=== PATIENT | male | born 1970 | race Caucasian/White ===

== ENCOUNTER 2024-02-16 18:58 | Observation (INO) | payer BC, MEDICAID ==
[2024-02-16] MEDS ORDERED: BABY ASPIRIN 81 MG CHEW ONE (19:10)
[2024-02-16] MEDS: BABY ASPIRIN 81 MG CHEW PO ONE (19:10)
[2024-02-16 19:20] LABS: Absolute Neutrophil Ct (ANC) 5.67 x10^3/uL (1.78-5.38); BASOPHIL % 0.8 % (0.2-1.2); Basophil (Absolute #) 0.07 x10^3/uL (0.01-0.08); Eosinophil % 2.7 % (0.8-7.0); Eosinophil (Absolute #) 0.25 x10^3/uL (0.04-0.54); Hematocrit 41.7 % (40.1-51.0); Hemoglobin 14.3 g/dL (13.7-17.5); IMMATURE GRAN # 0.01 x10^3u/L (0.001-0.031); IMMATURE GRAN % 0.1 % (0.001-0.429); Lymphocytes % 27.2 % (21.8-53.1); Mean Cell Volume 93.1 fL (79.0-92.2); Mean Corpuscular Hemoglobin 31.9 pg (25.7-32.2); Mean Corpuscular Hgb Concent. 34.3 g/dL (32.3-36.5); Mean Platelet Volume 9.7 fL (9.4-12.4); Monocytes % 7.6 % (5.3-12.2); Neutrophil % 61.6 % (34.0-67.9); Platelet Count 210 x10^3/uL (163-337); Red Blood Count 4.48 x10^6/uL (4.63-6.08); Red Cell Distribution Width 13.7 % (11.6-14.4); White Blood Count 9.2 x10^3/uL (4.23-9.07)
--- NOTE | 2024-02-16 19:29 | ERPHSYRPT ---
- History of Present Illness Time Seen by Provider: 02/16/24 19:05 Historian: patient, family Exam Limitations: no limitations Patient Subjective Stated Complaint: chest pain Triage Nursing Assessment: patient states that he's had 9 MIs, too many stents to count, recently moved here from [place] so not taking any prescibed medication Physician History: This is a 53-year-old white male patient brought into the emergency department by private vehicle accompanied by his daughter secondary to chest pain that he has been having intermittently for several months. Patient had a coronary artery bypass in March 2023. Since that time he has been unable to work and he lost his insurance. He is unable to purchase his medications and therefore he has been sporadically taking his medications in order to conserve them. He has a history of multiple MIs and cardiac stents in the past as well. He has a history of hyperlipidemia and is supposed to be on Plavix which he periodically/sporadically takes. Patient began having some chest pain today substernal, central pressure without radiation. He took a full baby aspirin and a full regular aspirin earlier today. At the time of my examination, the patient denies chest pain. His vital signs are stable and he is afebrile. Timing/Duration: intermittent Activities at Onset: none Quality: pressure Location: substernal, central Chest Pain Radiation: no radiation Severity of Pain-Max: mild (To moderate earlier today) Severity of Pain-Current: none Associated Symptoms: denies symptoms Prior Chest Pain/Cardiac Workup: cardiac cath, echocardiography, heart attack Nitro Today/Relief: no nitro taken today Aspirin Treatment Today: 81 mg x 4, 325 mg x 1, provided at home Allergies/Adverse Reactions: No Known Drug Allergies Allergy (Unverified 02/16/24 19:07) Home Medications: Aspirin [Aspirin EC] 81 mg PO DAILY 02/16/24 [History] Atorvastatin Calcium [Lipitor] 80 mg PO DAILY 02/16/24 [History] Clopidogrel Bisulfate [Clopidogrel] 75 mg PO DAILY 02/16/24 [History] Lisinopril 20 mg [Zestril 20 MG] 20 mg PO DAILY 02/16/24 [History] Metoprolol Succinate 25 mg Xl* [Toprol-Xl 25MG Tablets] 25 mg PO DAILY 02/16/24 [History] Hx Influenza Vaccination/Date Given: No Hx Pneumococcal Vaccination/Date Given: No Travel Risk - International Travel Have you traveled outside of the country in past 3 weeks: No - Emerging Infectious Disease Are you exhibiting symptoms associated with any current EIDs: No - Review of Systems Constitutional: No Symptoms Eyes: No Symptoms Ears, Nose, & Throat: No Symptoms Respiratory: No Symptoms Cardiac: Chest Pain (None now) Abdominal/Gastrointestinal: No Symptoms Genitourinary Symptoms: No Symptoms Musculoskeletal: No Symptoms Skin: No Symptoms Neurological: No Symptoms Psychological: No Symptoms Endocrine: No Symptoms Hematologic/Lymphatic: No Symptoms Immunological/Allergic: No Symptoms All Other Systems: Reviewed and Negative - Past Medical History Pertinent Past Medical History: Yes Cardiac History: Coronary Artery Disease, Myocardial Infarction ([place]) - Past Surgical History Cardiac: Cardiac Catheterization, Cardiac Stent - Social History Smoking Status: Current every day smoker Exposure to second hand smoke: Yes Drug Use: none - Nursing Vital Signs Nursing Vital Signs: Initial Vital Signs Temperature 97.6 F 02/16/24 18:59 Pulse Rate 85 02/16/24 18:59 Respiratory Rate 18 02/16/24 18:59 Blood Pressure 130/75 02/16/24 18:59 O2 Sat by Pulse Oximetry 100 02/16/24 18:59 Pain Scale Pain Intensity 0 - Physical Exam General Appearance: no apparent distress, alert, anxiety, thin Eye Exam: PERRL/EOMI, eyes nml inspection Ears, Nose, Throat Exam: normal ENT inspection, moist mucous membranes Neck Exam: normal inspection, non-tender, supple, full range of motion Respiratory Exam: normal breath sounds, lungs clear, airway intact, No chest tenderness, No respiratory distress Cardiovascular Exam: regular rate/rhythm, normal heart sounds, normal peripheral pulses Gastrointestinal/Abdomen Exam: soft, normal bowel sounds, No tenderness Rectal Exam: not done Back Exam: normal inspection, normal range of motion, No CVA tenderness, No vertebral tenderness Extremity Exam: normal inspection, normal range of motion, pelvis stable Neurologic Exam: alert, oriented x 3, cooperative, 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 QTc is 392. No acute ischemic changes on this EKG) Ordered Tests: Active Orders 24 hr Category Date Time Status Hand Plate Stacker STAT Care 02/16/24 19:08 Active EKG-ER Only STAT Care 02/16/24 19:07 Active IV Insertion STAT Care 02/16/24 19:07 Active Pulse Oximetry (ED) STAT Care 02/16/24 19:07 Active CHEST 1 VIEW (PORTABLE) Stat Exams 02/16/24 20:19 Ordered CBC W DIFF Stat Lab 02/16/24 19:00 Completed CMP Stat Lab 02/16/24 19:00 Completed D-DIMER QUANTITATIVE Stat Lab 02/16/24 19:00 Completed MAGNESIUM Stat Lab 02/16/24 19:00 Completed NT PRO BNPII Stat Lab 02/16/24 19:00 Completed PROTIME WITH INR Stat Lab 02/16/24 19:00 Completed PTT Stat Lab 02/16/24 19:00 Completed TROPONIN Q4H Lab 02/16/24 19:00 Completed TROPONIN Q4H Lab 02/16/24 21:28 Completed TROPONIN Q4H Lab 02/17/24 03:15 Ordered Medication Summary Discontinued Medications Generic Name Dose Route Start Last Admin Trade Name Freq PRN Reason Stop Dose Admin Aspirin 243 mg 02/16/24 19:09 02/16/24 19:12 Aspirin 81 Mg Tab.Chew PO 02/16/24 19:10 Not Given STAT ONE Aspirin Confirm 02/16/24 19:10 Aspirin 81 Mg Tab.Chew Administered 02/16/24 19:11 Dose 243 mg .ROUTE .STK-MED ONE Lab/Rad Data: Laboratory Result Diagrams 02/16/24 19:00 02/16/24 19:00 Laboratory Results 02/16/24 02/16/24 02/16/24 Range/Units 21:28 19:00 19:00 WBC (4.23-9.07) x10^3/uL RBC (4.63-6.08) x10^6/uL Hgb (13.7-17.5) g/dL Hct (40.1-51.0) % MCV (79.0-92.2) fL MCH (25.7-32.2) pg MCHC (32.3-36.5) g/dL RDW (11.6-14.4) % Plt Count (163-337) x10^3/uL MPV (9.4-12.4) fL Gran % (34.0-67.9) % Immature Gran % (Auto) (0.001-0.429) % Nucleat RBC Rel Count (0.00-0.2) % Eos # (Auto) (0.04-0.54) x10^3/uL Immature Gran # (Auto) (0.001-0.031) x10^3u/L Absolute Lymphs (auto) (1.32-3.57) x10^3/uL Absolute Monos (auto) (0.30-0.82) x10^3/uL Absolute Nucleated RBC (0.00-0.012) x10^3u/L Lymphocytes % (21.8-53.1) % Monocytes % (5.3-12.2) % Eosinophils % (0.8-7.0) % Basophils % (0.2-1.2) % Absolute Granulocytes (1.78-5.38) x10^3/uL Basophils # (0.01-0.08) x10^3/uL PT 10.3 (9.4-12.5) SECONDS INR 0.94 (0.8-3.0) APTT 28.7 (25.1-36.5) SECONDS D-Dimer 0.47 (0.0-0.50) mg/L Sodium (135-145) mmol/L Potassium (3.5-5.1) mmol/L Chloride (98-107) mmol/L Carbon Dioxide (22-30) mmol/L Anion Gap (5-15) MEQ/L BUN (9-20) mg/dL Creatinine (0.66-1.25) mg/dL Estimated GFR ML/MIN Glucose (74-106) mg/dL Calcium (8.4-10.2) mg/dL Magnesium (1.6-2.3) mg/dL Total Bilirubin (0.2-1.3) mg/dL AST (17-59) U/L ALT (0-50) U/L Alkaline Phosphatase (38-126) U/L Troponin I < 0.012 < 0.012 (0.000-0.033) ng/mL NT-Pro-B Natriuret Pep (<300) pg/mL Serum Total Protein (6.3-8.2) g/dL Albumin (3.5-5.0) g/dL 02/16/24 02/16/24 Range/Units 19:00 19:00 WBC 9.2 H (4.23-9.07) x10^3/uL RBC 4.48 L (4.63-6.08) x10^6/uL Hgb 14.3 (13.7-17.5) g/dL Hct 41.7 (40.1-51.0) % MCV 93.1 H (79.0-92.2) fL MCH 31.9 (25.7-32.2) pg MCHC 34.3 (32.3-36.5) g/dL RDW 13.7 (11.6-14.4) % Plt Count 210 (163-337) x10^3/uL MPV 9.7 (9.4-12.4) fL Gran % 61.6 (34.0-67.9) % Immature Gran % (Auto) 0.1 (0.001-0.429) % Nucleat RBC Rel Count 0.0 (0.00-0.2) % Eos # (Auto) 0.25 (0.04-0.54) x10^3/uL Immature Gran # (Auto) 0.01 (0.001-0.031) x10^3u/L Absolute Lymphs (auto) 2.50 (1.32-3.57) x10^3/uL Absolute Monos (auto) 0.70 (0.30-0.82) x10^3/uL Absolute Nucleated RBC 0.00 (0.00-0.012) x10^3u/L Lymphocytes % 27.2 (21.8-53.1) % Monocytes % 7.6 (5.3-12.2) % Eosinophils % 2.7 (0.8-7.0) % Basophils % 0.8 (0.2-1.2) % Absolute Granulocytes 5.67 H (1.78-5.38) x10^3/uL Basophils # 0.07 (0.01-0.08) x10^3/uL PT (9.4-12.5) SECONDS INR (0.8-3.0) APTT (25.1-36.5) SECONDS D-Dimer (0.0-0.50) mg/L Sodium 141 (135-145) mmol/L Potassium 4.5 (3.5-5.1) mmol/L Chloride 106 (98-107) mmol/L Carbon Dioxide 29 (22-30) mmol/L Anion Gap 10.6 (5-15) MEQ/L BUN 13 (9-20) mg/dL Creatinine 0.93 (0.66-1.25) mg/dL Estimated GFR 97.0 ML/MIN Glucose 89 (74-106) mg/dL Calcium 9.8 (8.4-10.2) mg/dL Magnesium 2.0 (1.6-2.3) mg/dL Total Bilirubin 0.30 (0.2-1.3) mg/dL AST 24 (17-59) U/L ALT 19 (0-50) U/L Alkaline Phosphatase 70 (38-126) U/L Troponin I (0.000-0.033) ng/mL NT-Pro-B Natriuret Pep 121 (<300) pg/mL Serum Total Protein 6.8 (6.3-8.2) g/dL Albumin 3.9 (3.5-5.0) g/dL - Progress Progress: improved, re-examined Air Movement: good Progress Note: 02/16/24 19:30 My medical decision making and the assignment of moderate to high complexity is based on review of the patient's past medical history, review the patient's medication list, reviewed patient drug allergy list, history present illness and physical findings on examination. The workup in this patient includes placement of intravenous line, CBC, CMP, D-dimer, BNP, troponin level, twelve-lead EKG, magnesium level. If the D-dimer is normal we will proceed with a chest x-ray. If the D-dimer is elevated we will proceed with CT scan of the chest with contr ast assuming the renal function is in an appropriate range. Differential diagnosis includes but is not limited to muscle skeletal pain, microinfarction, pulmonary embolus, pneumonia, electrolyte abnormalities, arrhythmias 02/16/24 21:01 I interpreted the patient's laboratory data results. Based on the laboratory data results, there are no acute, emergent medical issues. I interpreted the preliminary chest x-ray report. There are no acute cardiopulmonary processes. 02/16/24 21:54 I interpreted the patient's second (repeat) twelve-lead EKG. It was performed on 02/16/2024 at 2131. Heart rate is 74 bpm. Is normal sinus rhythm. There is borderline left axis deviation. There is normal intervals, there is normal QRS. QTc is 414. No acute ischemic changes on today's twelve-lead EKG. 02/16/24 22:11 The second troponin is also normal. The patient has no chest pain at this time. However he has a significantly elevated heart score and should be observed for 24 hours. I spoke with telehospitalist Dr. Dale and I reviewed the patient history, presenting complaint, workup performed and it results. We will place this patient in observation and repeat twelve-lead EKG in the morning with serial troponin levels. Blood Culture(s) Obtained: No Antibiotics given: No Counseled pt/family regarding: lab results, diagnosis, rad results Medical Desision Making - Independent Historian Additional History obtained from: Family - Discussion of managment Care discussed with:: hospitalist Reviewed:: Test results, Need for additional workup Agreed on:: Treatment plan, place in obs Will see patient: in hospital - Social Determinants of Health Pt's dx & treatment plan are significantly limited by SDOH: Unemployed Limited access to: transportation, medical care - Diagnostic Testing Diagnostic test were ordered, analyzed, and reviewed by me: Yes Radiological Interpretation: Interpreted by me - Risk of complications The pt has a high risk of morbidity or mortality based on: Decision regarding hospitilization or escalation of hosp level of care - Departure Departure Disposition: Observation Clinical Impression: ACS (acute coronary syndrome) Condition: Stable Critical Care Time: No Referrals: OSCAR ZACARIAS MD [Primary Care Provider] - Follow up/PCP as directed
[2024-02-16 19:54] LABS: D-DIMER QUANTITATIVE 0.47 mg/L (0.0-0.50); INR 0.94 (0.8-3.0); PROTIME 10.3 SECONDS (9.4-12.5); PTT 28.7 SECONDS (25.1-36.5)
[2024-02-16 20:06] LABS: ALBUMIN 3.9 g/dL (3.5-5.0); ANION GAP 10.6 MEQ/L (5-15); BILIRUBIN,TOTAL 0.3 mg/dL (0.2-1.3); Calcium 9.8 mg/dL (8.4-10.2); Creatinine 1 0.93 mg/dL (0.66-1.25); Potassium 4.5 mmol/L (3.5-5.1); Total Protein 6.8 g/dL (6.3-8.2)
[2024-02-16 22:06] VITALS: RESP 16
[2024-02-16] MEDS ORDERED: TYLENOL 325 MG PO PRN (22:32)
[2024-02-16] MEDS ORDERED: Zofran 4 MG/2 ML VIAL IV PRN (22:32)
--- NOTE | 2024-02-16 22:50 | PCM.HP ---
History of Present Illness - Chief Complaint Chief Complaint: ACS Date: 02/16/24 History of Present Illness: Mr. CASANOVA is a 53 year old male with a past medical history significant for hypertension, hyperlipidemia and coronary artery disease status post multiple PTCA/stents and CABG x4 in March requiring IABP who moved up here from [place] but has not been able to afford his medications after losing his job. He has been paying for them out of pocket but having to ration them out. He presents now with complaints of worsening chest pain associated with some tightness. No palpitations or shortness of breath. Pain does not seem to radiate much. No fever/chills. No nausea, vomiting or diarrhea. No dysuria, hematuria or urgency. He notes that the pain he is experiencing is similar to chest pain he has had in the past. - Review of Systems Constitutional: No Fever, No Chills Eyes: No Vision Changes, No Double Vision Ears, Nose, & Throat: No Sinus Drainage Respiratory: No Cough, No Orthopnea, No Short Of Breath Cardiac: Chest Pain, No Edema, No Palpitations, No Syncope Abdominal/Gastrointestinal: No Abdominal Pain, No Nausea, No Vomiting, No Diarrhea Genitourinary Symptoms: No Dysuria, No Frequency, No Hematuria Musculoskeletal: No Back Pain, No Neck Pain Skin: No Rash Neurological: No Focal Weakness, No Lethargy Psychological: No Suicidal Ideations Medications & Allergies Home Medications: Home Medication List Aspirin [Aspirin EC] 81 mg PO DAILY 02/16/24 [History Confirmed 02/16/24] Atorvastatin Calcium [Lipitor] 80 mg PO DAILY 02/16/24 [History Confirmed 02/16/24] Lisinopril 20 mg [Zestril 20 MG] 20 mg PO DAILY 02/16/24 [History Confirmed 02/16/24] Metoprolol Succinate 25 mg Xl* [Toprol-Xl 25MG Tablets] 25 mg PO DAILY 02/16/24 [History Confirmed 02/16/24] Allergies/Adverse Reactions: Allergies Allergy/AdvReac Type Severity Reaction Status Date / Time No Known Drug Allergies Allergy Verified 02/16/24 22:48 - Past Medical History Past Medical History: Yes Cardiac History: Coronary Artery Disease, Myocardial Infarction ([place]) - Past Surgical History Cardiac History: Cardiac Catheterization, Cardiac Stent - Social History Smoking Status: Current every day smoker Exposure to second hand smoke: Yes Alcohol: None Drug Use: none - Physical Exam Vital Signs: Vital Signs - 24 hr Temp Pulse Pulse Resp BP BP Pulse Ox 02/16/24 22:18 99 02/16/24 22:00 81 16 106/64 96 02/16/24 21:30 71 23 113/75 95 02/16/24 21:00 68 18 115/74 95 02/16/24 20:30 77 23 119/72 99 02/16/24 20:00 72 22 119/75 97 02/16/24 19:30 77 13 122/75 99 02/16/24 19:08 99 02/16/24 19:00 87 19 130/75 98 02/16/24 18:59 97.6 F 85 85 18 130/75 100 General Appearance: mild distress Neurologic Exam: alert Ears, Nose, Throat Exam: dry mucous membranes Neck Exam: supple Respiratory Exam: No respiratory distress Cardiovascular Exam: regular rate/rhythm Gastrointestinal/Abdomen Exam: soft Extremity Exam: No pedal edema, No swelling Skin Exam: normal color, No rash Results - Labs Lab/Micro Results: Lab Results-Last 24 Hours 02/16/24 02/16/24 02/16/24 Range/Units 19:00 19:00 19:00 WBC 9.2 H (4.23-9.07) x10^3/uL RBC 4.48 L (4.63-6.08) x10^6/uL Hgb 14.3 (13.7-17.5) g/dL Hct 41.7 (40.1-51.0) % MCV 93.1 H (79.0-92.2) fL MCH 31.9 (25.7-32.2) pg MCHC 34.3 (32.3-36.5) g/dL RDW 13.7 (11.6-14.4) % Plt Count 210 (163-337) x10^3/uL MPV 9.7 (9.4-12.4) fL Gran % 61.6 (34.0-67.9) % Immature Gran % (Auto) 0.1 (0.001-0.429) % Nucleat RBC Rel Count 0.0 (0.00-0.2) % Eos # (Auto) 0.25 (0.04-0.54) x10^3/uL Immature Gran # (Auto) 0.01 (0.001-0.031) x10^3u/L Absolute Lymphs (auto) 2.50 (1.32-3.57) x10^3/uL Absolute Monos (auto) 0.70 (0.30-0.82) x10^3/uL Absolute Nucleated RBC 0.00 (0.00-0.012) x10^3u/L Lymphocytes % 27.2 (21.8-53.1) % Monocytes % 7.6 (5.3-12.2) % Eosinophils % 2.7 (0.8-7.0) % Basophils % 0.8 (0.2-1.2) % Absolute Granulocytes 5.67 H (1.78-5.38) x10^3/uL Basophils # 0.07 (0.01-0.08) x10^3/uL PT 10.3 (9.4-12.5) SECONDS INR 0.94 (0.8-3.0) APTT 28.7 (25.1-36.5) SECONDS D-Dimer 0.47 (0.0-0.50) mg/L Sodium 141 (135-145) mmol/L Potassium 4.5 (3.5-5.1) mmol/L Chloride 106 (98-107) mmol/L Carbon Dioxide 29 (22-30) mmol/L Anion Gap 10.6 (5-15) MEQ/L BUN 13 (9-20) mg/dL Creatinine 0.93 (0.66-1.25) mg/dL Estimated GFR 97.0 ML/MIN Glucose 89 (74-106) mg/dL Calcium 9.8 (8.4-10.2) mg/dL Magnesium 2.0 (1.6-2.3) mg/dL Total Bilirubin 0.30 (0.2-1.3) mg/dL AST 24 (17-59) U/L ALT 19 (0-50) U/L Alkaline Phosphatase 70 (38-126) U/L Troponin I (0.000-0.033) ng/mL NT-Pro-B Natriuret Pep 121 (<300) pg/mL Serum Total Protein 6.8 (6.3-8.2) g/dL Albumin 3.9 (3.5-5.0) g/dL 02/16/24 02/16/24 Range/Units 19:00 21:28 WBC (4.23-9.07) x10^3/uL RBC (4.63-6.08) x10^6/uL Hgb (13.7-17.5) g/dL Hct (40.1-51.0) % MCV (79.0-92.2) fL MCH (25.7-32.2) pg MCHC (32.3-36.5) g/dL RDW (11.6-14.4) % Plt Count (163-337) x10^3/uL MPV (9.4-12.4) fL Gran % (34.0-67.9) % Immature Gran % (Auto) (0.001-0.429) % Nucleat RBC Rel Count (0.00-0.2) % Eos # (Auto) (0.04-0.54) x10^3/uL Immature Gran # (Auto) (0.001-0.031) x10^3u/L Absolute Lymphs (auto) (1.32-3.57) x10^3/uL Absolute Monos (auto) (0.30-0.82) x10^3/uL Absolute Nucleated RBC (0.00-0.012) x10^3u/L Lymphocytes % (21.8-53.1) % Monocytes % (5.3-12.2) % Eosinophils % (0.8-7.0) % Basophils % (0.2-1.2) % Absolute Granulocytes (1.78-5.38) x10^3/uL Basophils # (0.01-0.08) x10^3/uL PT (9.4-12.5) SECONDS INR (0.8-3.0) APTT (25.1-36.5) SECONDS D-Dimer (0.0-0.50) mg/L Sodium (135-145) mmol/L Potassium (3.5-5.1) mmol/L Chloride (98-107) mmol/L Carbon Dioxide (22-30) mmol/L Anion Gap (5-15) MEQ/L BUN (9-20) mg/dL Creatinine (0.66-1.25) mg/dL Estimated GFR ML/MIN Glucose (74-106) mg/dL Calcium (8.4-10.2) mg/dL Magnesium (1.6-2.3) mg/dL Total Bilirubin (0.2-1.3) mg/dL AST (17-59) U/L ALT (0-50) U/L Alkaline Phosphatase (38-126) U/L Troponin I < 0.012 < 0.012 (0.000-0.033) ng/mL NT-Pro-B Natriuret Pep (<300) pg/mL Serum Total Protein (6.3-8.2) g/dL Albumin (3.5-5.0) g/dL - Radiology Impressions Radiology Exams & Impressions: Radiology Procedures Category Date Time Status CHEST 1 VIEW (PORTABLE) Stat Exams 02/16/24 20:19 Taken - Other Procedures and Tests Respiratory Therapy 02/16/24 22:32 EKG REPEAT IN AM Assessment/Plan (1) ACS (acute coronary syndrome) Current Visit: Yes Status: Acute Assessment & Plan: At high risk for AMI due to noncompliance with meds 1. Admit to hospital 2. Monitor on telemetry 3. Trend troponin 4. ASA/beta srinivasan 5. Cardio eval Code(s): I24.9 - ACUTE ISCHEMIC HEART DISEASE, UNSPECIFIED (2) Coronary arteriosclerosis Current Visit: Yes Status: Acute Assessment & Plan: Has had 8 heart attacks with PTCA/stents and CABG x4 03/2023 1. Will get case management involved to help with meds 2. Stress test (3) Essential (primary) hypertension Current Visit: Yes Status: Acute Assessment & Plan: Blood pressure under suboptimal control but not taking meds properly 1. Continue bp meds 2. Low Na diet 3. Monitor blod pressure readings Code(s): I10 - ESSENTIAL (PRIMARY) HYPERTENSION (4) Hyperlipidemia, unspecified Current Visit: Yes Status: Acute Qualifiers: Hyperlipidemia type: pure hypercholesterolemia Qualified Code(s): E78.00 - Pure hypercholesterolemia, unspecified; E78.0 - Pure hypercholesterolemia Assessment & Plan: On Statin but not taking proper dose 1. Low fat diet 2. Start statin 3. Check lipid profile Code(s): E78.5 - HYPERLIPIDEMIA, UNSPECIFIED (5) UTI (urinary tract infection) Current Visit: Yes Status: Acute Assessment & Plan: Patient with complaints of increasing urinary frequency 1. Check u/a, culture 2. Will start empiric antibiotics Code(s): N39.0 - URINARY TRACT INFECTION, SITE NOT SPECIFIED Telemedicine Encounter - Telemedicine Encounter Telemedicine Encounter: "The entirety of this encounter was performed via Telemedicine" This visit was performed using real-time audio and video connection between my location and thepatients locationwith the assistance of a surrogateat the patients location. Written or verbal consent was obtained from the patien t/guardian to perform this visit [facility]. Any patient questions regarding the telemedicine interaction were answered.
[2024-02-17 00:30] LABS: Appearance Turbid (Clear); Bacteria Many /HPF (None Seen); Bilirubin Negative (Negative); Blood Negative (Negative); Epithelial Cells None Seen /HPF (None Seen); Glucose, Urine Negative (Negative); Hyaline Casts NONE SEEN /LPF (0-2); Ketones Negative (Negative); Leukocyte Esterase Small (Negative); Nitrite Negative (Negative); Protein,Urine Dip Negative (Negative); Specific Gravity 1.015 (1.005-1.030); Urobilinogen 0.2 mg/dL (0.2); WBC 21-50 /HPF (0-5)
[2024-02-17 04:55] LABS: Absolute Neutrophil Ct (ANC) 5.14 x10^3/uL (1.78-5.38); BASOPHIL % 0.7 % (0.2-1.2); Basophil (Absolute #) 0.06 x10^3/uL (0.01-0.08); Eosinophil % 2.7 % (0.8-7.0); Eosinophil (Absolute #) 0.23 x10^3/uL (0.04-0.54); Hematocrit 42.8 % (40.1-51.0); Hemoglobin 14.3 g/dL (13.7-17.5); IMMATURE GRAN # 0.02 x10^3u/L (0.001-0.031); IMMATURE GRAN % 0.2 % (0.001-0.429); Lymphocyte (Absolute #) 2.21 x10^3/uL (1.32-3.57); Mean Cell Volume 92.6 fL (79.0-92.2); Mean Corpuscular Hgb Concent. 33.4 g/dL (32.3-36.5); Mean Platelet Volume 9.6 fL (9.4-12.4); Monocyte (Absolute #) 0.85 x10^3/uL (0.30-0.82); Neutrophil % 60.4 % (34.0-67.9); Platelet Count 198 x10^3/uL (163-337); Red Blood Count 4.62 x10^6/uL (4.63-6.08); Red Cell Distribution Width 13.6 % (11.6-14.4); White Blood Count 8.5 x10^3/uL (4.23-9.07)
[2024-02-17 05:21] LABS: BILIRUBIN,TOTAL 0.4 mg/dL (0.2-1.3)
[2024-02-17 05:22] LABS: Potassium 3.5 mmol/L (3.5-5.1)
--- NOTE | 2024-02-17 05:25 | PCM.NOTE ---
Date and Time: 02/17/24519 Subjective Assessment: HPI: Mr. CASANOVA is a 53 year old male with a past medical history significant for hypertension, hyperlipidemia and coronary artery disease status post multiple PTCA/stents and CABG x4 in March requiring IABP who moved up here from [place] but has not been able to afford his medications after losing his job. He has been paying for them out of pocket but having to ration them out. He presents now with complaints of worsening chest pain associated with some tightness. No palpitations or shortness of breath. Pain does not seem to radiate much. No fever/chills. No nausea, vomiting or diarrhea. No dysuria, hematuria or urgency. He notes that the pain he is experiencing is similar to chest pain he has had in the past. Objective Data Vital Signs: Vital Signs - 24 hr Temp Pulse Pulse Resp BP BP Pulse Ox 02/17/24 04:00 97.2 F 72 16 108/56 92 L 02/16/24 22:49 97.7 F 70 16 132/77 96 02/16/24 22:32 96 02/16/24 22:18 99 02/16/24 22:00 81 16 106/64 96 02/16/24 21:30 71 23 113/75 95 02/16/24 21:00 68 18 115/74 95 02/16/24 20:30 77 23 119/72 99 02/16/24 20:00 72 22 119/75 97 02/16/24 19:30 77 13 122/75 99 02/16/24 19:08 99 02/16/24 19:00 87 19 130/75 98 02/16/24 18:59 97.6 F 85 85 18 130/75 100 Pain Assessment - Last Documented Pain Intensity 0 Intake and Output: Intake & Output 02/14/24 02/15/24 02/16/24 02/17/24 11:59 11:59 11:59 11:59 Intake Total 0 Output Total 200 Balance -200 Weight 68.6 kg Lab Results: Lab Results-Last 24 Hours 02/16/24 02/16/24 02/16/24 Range/Units 19:00 19:00 19:00 WBC 9.2 H (4.23-9.07) x10^3/uL RBC 4.48 L (4.63-6.08) x10^6/uL Hgb 14.3 (13.7-17.5) g/dL Hct 41.7 (40.1-51.0) % MCV 93.1 H (79.0-92.2) fL MCH 31.9 (25.7-32.2) pg MCHC 34.3 (32.3-36.5) g/dL RDW 13.7 (11.6-14.4) % Plt Count 210 (163-337) x10^3/uL MPV 9.7 (9.4-12.4) fL Gran % 61.6 (34.0-67.9) % Immature Gran % (Auto) 0.1 (0.001-0.429) % Nucleat RBC Rel Count 0.0 (0.00-0.2) % Eos # (Auto) 0.25 (0.04-0.54) x10^3/uL Immature Gran # (Auto) 0.01 (0.001-0.031) x10^3u/L Absolute Lymphs (auto) 2.50 (1.32-3.57) x10^3/uL Absolute Monos (auto) 0.70 (0.30-0.82) x10^3/uL Absolute Nucleated RBC 0.00 (0.00-0.012) x10^3u/L Lymphocytes % 27.2 (21.8-53.1) % Monocytes % 7.6 (5.3-12.2) % Eosinophils % 2.7 (0.8-7.0) % Basophils % 0.8 (0.2-1.2) % Absolute Granulocytes 5.67 H (1.78-5.38) x10^3/uL Basophils # 0.07 (0.01-0.08) x10^3/uL PT 10.3 (9.4-12.5) SECONDS INR 0.94 (0.8-3.0) APTT 28.7 (25.1-36.5) SECONDS D-Dimer 0.47 (0.0-0.50) mg/L Sodium 141 (135-145) mmol/L Potassium 4.5 (3.5-5.1) mmol/L Chloride 106 (98-107) mmol/L Carbon Dioxide 29 (22-30) mmol/L Anion Gap 10.6 (5-15) MEQ/L BUN 13 (9-20) mg/dL Creatinine 0.93 (0.66-1.25) mg/dL Estimated GFR 97.0 ML/MIN Glucose 89 (74-106) mg/dL Calcium 9.8 (8.4-10.2) mg/dL Magnesium 2.0 (1.6-2.3) mg/dL Total Bilirubin 0.30 (0.2-1.3) mg/dL AST 24 (17-59) U/L ALT 19 (0-50) U/L Alkaline Phosphatase 70 (38-126) U/L Troponin I (0.000-0.033) ng/mL NT-Pro-B Natriuret Pep 121 (<300) pg/mL Serum Total Protein 6.8 (6.3-8.2) g/dL Albumin 3.9 (3.5-5.0) g/dL Urine Color (Yellow) Urine Appearance (Clear) Urine pH (4.6-8.0) Ur Specific [place] (1.005-1.030) Urine Protein (Negative) Urine Glucose (UA) (Negative) mg/dL Urine Ketones (Negative) Urine Blood (Negative) Urine Nitrite (Negative) Urine Bilirubin (Negative) Urine Urobilinogen (0.2) mg/dL Ur Leukocyte Esterase (Negative) U Hyaline Cast (Auto) (0-2) /LPF Urine Microscopic RBC (0-5) /HPF Urine Microscopic WBC (0-5) /HPF Ur Epithelial Cells (None Seen) /HPF Urine Bacteria (None Seen) /HPF Urine Culture Reflexed (NO) 02/16/24 02/16/24 02/16/24 Range/Units 19:00 21:28 23:20 WBC (4.23-9.07) x10^3/uL RBC (4.63-6.08) x10^6/uL Hgb (13.7-17.5) g/dL Hct (40.1-51.0) % MCV (79.0-92.2) fL MCH (25.7-32.2) pg MCHC (32.3-36.5) g/dL RDW (11.6-14.4) % Plt Count (163-337) x10^3/uL MPV (9.4-12.4) fL Gran % (34.0-67.9) % Immature Gran % (Auto) (0.001-0.429) % Nucleat RBC Rel Count (0.00-0.2) % Eos # (Auto) (0.04-0.54) x10^3/uL Immature Gran # (Auto) (0.001-0.031) x10^3u/L Absolute Lymphs (auto) (1.32-3.57) x10^3/uL Absolute Monos (auto) (0.30-0.82) x10^3/uL Absolute Nucleated RBC (0.00-0.012) x10^3u/L Lymphocytes % (21.8-53.1) % Monocytes % (5.3-12.2) % Eosinophils % (0.8-7.0) % Basophils % (0.2-1.2) % Absolute Granulocytes (1.78-5.38) x10^3/uL Basophils # (0.01-0.08) x10^3/uL PT (9.4-12.5) SECONDS INR (0.8-3.0) APTT (25.1-36.5) SECONDS D-Dimer (0.0-0.50) mg/L Sodium (135-145) mmol/L Potassium (3.5-5.1) mmol/L Chloride (98-107) mmol/L Carbon Dioxide (22-30) mmol/L Anion Gap (5-15) MEQ/L BUN (9-20) mg/dL Creatinine (0.66-1.25) mg/dL Estimated GFR ML/MIN Glucose (74-106) mg/dL Calcium (8.4-10.2) mg/dL Magnesium (1.6-2.3) mg/dL Total Bilirubin (0.2-1.3) mg/dL AST (17-59) U/L ALT (0-50) U/L Alkaline Phosphatase (38-126) U/L Troponin I < 0.012 < 0.012 (0.000-0.033) ng/mL NT-Pro-B Natriuret Pep (<300) pg/mL Serum Total Protein (6.3-8.2) g/dL Albumin (3.5-5.0) g/dL Urine Color Dark Yellow (Yellow) Urine Appearance Turbid A (Clear) Urine pH 8.0 (4.6-8.0) Ur Specific [place] 1.015 (1.005-1.030) Urine Protein Negative (Negative) Urine Glucose (UA) Negative (Negative) mg/dL Urine Ketones Negative (Negative) Urine Blood Negative (Negative) Urine Nitrite Negative (Negative) Urine Bilirubin Negative (Negative) Urine Urobilinogen 0.2 (0.2) mg/dL Ur Leukocyte Esterase Small A (Negative) U Hyaline Cast (Auto) NONE SEEN (0-2) /LPF Urine Microscopic RBC 3-5 (0-5) /HPF Urine Microscopic WBC 21-50 A (0-5) /HPF Ur Epithelial Cells None Seen (None Seen) /HPF Urine Bacteria Many A (None Seen) /HPF Urine Culture Reflexed YES (NO) 02/17/24 Range/Units 04:50 WBC 8.5 (4.23-9.07) x10^3/uL RBC 4.62 L (4.63-6.08) x10^6/uL Hgb 14.3 (13.7-17.5) g/dL Hct 42.8 (40.1-51.0) % MCV 92.6 H (79.0-92.2) fL MCH 31.0 (25.7-32.2) pg MCHC 33.4 (32.3-36.5) g/dL RDW 13.6 (11.6-14.4) % Plt Count 198 (163-337) x10^3/uL MPV 9.6 (9.4-12.4) fL Gran % 60.4 (34.0-67.9) % Immature Gran % (Auto) 0.2 (0.001-0.429) % Nucleat RBC Rel Count 0.0 (0.00-0.2) % Eos # (Auto) 0.23 (0.04-0.54) x10^3/uL Immature Gran # (Auto) 0.02 (0.001-0.031) x10^3u/L Absolute Lymphs (auto) 2.21 (1.32-3.57) x10^3/uL Absolute Monos (auto) 0.85 H (0.30-0.82) x10^3/uL Absolute Nucleated RBC 0.00 (0.00-0.012) x10^3u/L Lymphocytes % 26.0 (21.8-53.1) % Monocytes % 10.0 (5.3-12.2) % Eosinophils % 2.7 (0.8-7.0) % Basophils % 0.7 (0.2-1.2) % Absolute Granulocytes 5.14 (1.78-5.38) x10^3/uL Basophils # 0.06 (0.01-0.08) x10^3/uL PT (9.4-12.5) SECONDS INR (0.8-3.0) APTT (25.1-36.5) SECONDS D-Dimer (0.0-0.50) mg/L Sodium (135-145) mmol/L Potassium (3.5-5.1) mmol/L Chloride (98-107) mmol/L Carbon Dioxide (22-30) mmol/L Anion Gap (5-15) MEQ/L BUN (9-20) mg/dL Creatinine (0.66-1.25) mg/dL Estimated GFR ML/MIN Glucose (74-106) mg/dL Calcium (8.4-10.2) mg/dL Magnesium (1.6-2.3) mg/dL Total Bilirubin (0.2-1.3) mg/dL AST (17-59) U/L ALT (0-50) U/L Alkaline Phosphatase (38-126) U/L Troponin I (0.000-0.033) ng/mL NT-Pro-B Natriuret Pep (<300) pg/mL Serum Total Protein (6.3-8.2) g/dL Albumin (3.5-5.0) g/dL Urine Color (Yellow) Urine Appearance (Clear) Urine pH (4.6-8.0) Ur Specific [place] (1.005-1.030) Urine Protein (Negative) Urine Glucose (UA) (Negative) mg/dL Urine Ketones (Negative) Urine Blood (Negative) Urine Nitrite (Negative) Urine Bilirubin (Negative) Urine Urobilinogen (0.2) mg/dL Ur Leukocyte Esterase (Negative) U Hyaline Cast (Auto) (0-2) /LPF Urine Microscopic RBC (0-5) /HPF Urine Microscopic WBC (0-5) /HPF Ur Epithelial Cells (None Seen) /HPF Urine Bacteria (None Seen) /HPF Urine Culture Reflexed (NO) Radiology Exams: Radiology Procedures Category Date Time Status CHEST 1 VIEW (PORTABLE) Stat Exams 02/16/24 20:19 Taken Assessment/Plan (1) ACS (acute coronary syndrome) Current Visit: Yes Status: Acute Assessment & Plan: 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 - neg x 2 -DDimer WNL -BNP WNL -CXR with no acute cardiopulmonary processes Repeat EKG Code(s): I24.9 - ACUTE ISCHEMIC HEART DISEASE, UNSPECIFIED (2) Essential (primary) hypertension Current Visit: Yes Status: Acute Assessment & Plan: -controlled - continue home meds Code(s): I10 - ESSENTIAL (PRIMARY) HYPERTENSION (3) Hyperlipidemia, unspecified Current Visit: Yes Status: Acute Qualifiers: Hyperlipidemia type: pure hypercholesterolemia Qualified Code(s): E78.00 - Pure hypercholesterolemia, unspecified; E78.0 - Pure hypercholesterolemia Assessment & Plan: -continue lipitor Code(s): E78.5 - HYPERLIPIDEMIA, UNSPECIFIED (4) UTI (urinary tract infection) Current Visit: Yes Status: Acute Assessment & Plan: -UA suspicious for UTI, will continue cefriaxone- follow culture Code(s): N39.0 - URINARY TRACT INFECTION, SITE NOT SPECIFIED (5) CAD (coronary artery disease) Current Visit: Yes Status: Acute Assessment & Plan: -continue home medications -CM to help with cost -Has had 8 heart attacks with PTCA/stents and CABG x4 03/2023 -Patient may need stress testing Code(s): I25.10 - ATHSCL HEART DISEASE OF [place] CORONARY ARTERY W/O ANG PCTRS
[2024-02-17 05:29] LABS: ALBUMIN 3.6 g/dL (3.5-5.0); Calcium 9.6 mg/dL (8.4-10.2); Creatinine 1 0.79 mg/dL (0.66-1.25); EST GLOMERULAR FILTRATION RATE 104.9 ML/MIN; Total Protein 6.3 g/dL (6.3-8.2)
[2024-02-17 05:30] LABS: ANION GAP 8.5 MEQ/L (5-15)
--- NOTE | 2024-02-17 08:48 | XRAY ---
Indication: Chest pain. Comparison: February 21, 2009 Portable apical lordotic chest remains inflated and clear. Heart not enlarged with interval CABG. Bony thorax intact with mild degenerative changes. Impression: Nonacute chest with chronic features.
[2024-02-17] MEDS: ECOTRIN 81 MG PO SCH (09:13)
[2024-02-17] MEDS: ZOCOR 20MG PO SCH (09:13)
[2024-02-17] MEDS: Toprol-Xl 25MG Tablets PO SCH (09:13)
[2024-02-17] MEDS: Zestril 20 MG PO SCH (09:13)
[2024-02-17] MEDS: ENOXAPARIN SODIUM SQ SCH (09:13)
[2024-02-17] MEDS: Protonix 40MG Tablet PO SCH (09:13)
[2024-02-17] MEDS: ROCEPHIN 1 GM / 100 ML NaCl 1 GM/100 ML IVPB IV SCH (09:14)
--- NOTE | 2024-02-17 09:29 | PCM.CONS ---
History of Present Illness - Date of Consult Consulting Roller Inspector: JOHANNA GUEVARA MD Requesting Provider: Attending Provider: CHERYLE MONTOYA MD Primary Care Provider: PCP: OSCAR ZACARIAS - Consult Narrative Reason for Consult: chest pain and weakness HPI: Patient is a 53M w PMHx of HTN, CAD s/p "9" previous MIs multiple stents with "full metal jacket" and CABG x4 in Mar 2023 who presents for evaluation of chest pressure and weakness. The patient reports several days of weakness. Yesterday, he started to have chest pressure which was similar to symptoms of his prior MIs. He is very clear in stating that the pressure lasted at least half the day and was unrelenting. Of note, he has been off of his cardioprotective medical regimen due to loss of job and apparent inability to afford his medications. He denies any palpitations, n/v, or diaphoresis. He does report getting SOB at times but this doesn't seem to have changed recently. Of note, he is a long time smoker although he only smokes a "1-2" cigarettes a day now; he previously smoked significantly more. He denies any prior diagnosis of COPD. Trops are negative x 3. EKG this morning shows NSR with normal axis, no ST-T changes. Normal EKG. cc:: The requesting physician will be sent a copy of the consult. Review of Systems - Review of Systems All systems: as per HPI - Past Medical History Past Medical History: Yes Neurological History: No Pertinent History ENT History: No Pertinent History Cardiac History: Coronary Artery Disease, Myocardial Infarction ([place]) Respiratory History: Other Endocrine Medical History: No Pertinent History Musculoskelatal History: No Pertinent History GI Medical History: No Pertinent History History: No Pertinent History Pyscho-Social History: No Pertinent History Male Reproductive Disorders: No Pertinent History Comment: PT STATES HE GETS SHORT OF BREATH - Past Surgical History Past Surgical History: Yes Neuro Surgical History: No Pertinent History Cardiac History: Cardiac Catheterization, Cardiac Stent, Other (CABG x4 Mar 2023) Respiratory Surgery: No Pertinent History GI Surgical History: No Pertinent History Genitourinary Surgical Hx: No Pertinent History Musculskeletal Surgical Hx: No Pertinent History Male Surgical History: No Pertinent History Significant Family History: no pertinent family hx - Social History Smoking Status: Current every day smoker How long have you smoked: 30 YEARS Exposure to second hand smoke: Yes Alcohol: None Drug Use: none - Social Determinants of Health Will the patient participate in the screening: Yes Do you worry about a steady place to live?: Yes Do you have any problems with any of the following?: No known problems In the past 12 months,have you had to go without utilities?: No Have you or anyone in your house had to go without enough: Yes Transportation Issues: Yes Has anyone in your support network made you feel unsafe?: No Does the patient want assistance with any of the above?: No Medications & Allergies Home Medications: Home Medication List Aspirin [Aspirin EC] 81 mg PO DAILY 02/16/24 [History Confirmed 02/16/24] Atorvastatin Calcium [Lipitor] 80 mg PO DAILY 02/16/24 [History Confirmed 02/16/24] Lisinopril 20 mg [Zestril 20 MG] 20 mg PO DAILY 02/16/24 [History Confirmed 02/16/24] Metoprolol Succinate 25 mg Xl* [Toprol-Xl 25MG Tablets] 25 mg PO DAILY 02/28 [History Confirmed 02/16/24] Allergies/Adverse Reactions: Allergies Allergy/AdvReac Type Severity Reaction Status Date / Time No Known Drug Allergies Allergy Verified 02/16/24 22:48 Exam - Vitals Vital Signs: Vital Signs - 24 hr Temp Pulse Pulse Resp BP BP Pulse Ox 02/17/24 08:21 96 02/17/24 07:12 97.9 F 74 16 104/64 97 02/17/24 04:00 97.2 F 72 16 108/56 92 L 02/16/24 22:49 97.7 F 70 16 132/77 96 02/16/24 22:32 96 02/16/24 22:18 99 02/16/24 22:00 81 16 106/64 96 02/16/24 21:30 71 23 113/75 95 02/16/24 21:00 68 18 115/74 95 02/16/24 20:30 77 23 119/72 99 02/16/24 20:00 72 22 119/75 97 02/16/24 19:30 77 13 122/75 99 02/16/24 19:08 99 02/16/24 19:00 87 19 130/75 98 02/16/24 18:59 97.6 F 85 85 18 130/75 100 General:: alert and oriented x 4, no acute distress, thin, other (lying flat in bed) HEENT: PERRLA, EOMI, other (No JVD) Cardiovascular Exam: regular rate/rhythm, normal heart sounds, normal peripheral pulses, other (no m/r/g) Respiratory Exam: normal breath sounds, lungs clear SpO2: 96 Gastrointestinal/Abdomen Exam: soft, normal bowel sounds Skin Exam: normal color Extremity Exam: normal inspection, normal range of motion, other (no edema) Male Genitalia Exam: deferred Rectal Exam: deferred 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, 5/5 Motor and Sensory Upper and Lower Extremities, appropriate affect, normal mood/affect Results Vital Signs: Vital Signs - 24 hr Temp Pulse Pulse Resp BP BP Pulse Ox 02/17/24 08:21 96 02/17/24 07:12 97.9 F 74 16 104/64 97 02/17/24 04:00 97.2 F 72 16 108/56 92 L 02/16/24 22:49 97.7 F 70 16 132/77 96 02/16/24 22:32 96 02/16/24 22:18 99 02/16/24 22:00 81 16 106/64 96 02/16/24 21:30 71 23 113/75 95 02/16/24 21:00 68 18 115/74 95 02/16/24 20:30 77 23 119/72 99 02/16/24 20:00 72 22 119/75 97 02/16/24 19:30 77 13 122/75 99 02/16/24 19:08 99 02/16/24 19:00 87 19 130/75 98 02/16/24 18:59 97.6 F 85 85 18 130/75 100 Pain Assessment - Last Documented Pain Intensity 0 Intake and Output: Intake & Output 02/14/24 02/15/24 02/16/24 02/17/24 11:59 11:59 11:59 11:59 Intake Total 480 Output Total 500 Balance -20 Weight 68.6 kg LAB: I have reviewed the Labs in RF Code. Radiology Exams: Radiology Procedures Category Date Time Status CHEST 1 VIEW (PORTABLE) Stat Exams 02/16/24 20:19 Completed X-ray Interpretation: report reviewed by me Tracing 2 Attestation: I have reviewed this EKG and interpreted as documented below. EKG Interpreted by Me: Sinus Rhythm, NORMAL AXIS, Other (No ST-T changes) Assessment & Plan (1) CAD (coronary artery disease) Current Visit: Yes Status: Acute Qualifiers: Coronary Disease-Associated Artery/Lesion type: bypass graft [place] vs. transplanted heart: [place] heart Assessment & Plan: Patient has ruled out with negative biomarkers x3. This excludes his symptoms being 2/2 to ACS as hours of consistent, unrelenting chest pressure for half a day would result in an infarct with resultant elevated cardiac biomarkers if symptoms were due to ischemia. EKG is benign. He needs to resume his cardioprotective medical regimen and follow up with outpatient cardiology. Code(s): I25.10 - ATHSCL HEART DISEASE OF [place] CORONARY ARTERY W/O ANG PCTRS (2) Shortness of breath Current Visit: Yes Status: Acute Assessment & Plan: Would consider formal w/u for COPD given prolonged smoking history. This can be done as an outpatient. I described the spirometry procedure to him and he denies undergoing this procedure in the past. Code(s): R06.02 - SHORTNESS OF BREATH - Encounter Encounter: "The entirety of this encounter was performed via Telemedicine using audio and visual "
[2024-02-17] MEDS ORDERED: NON-FORMULARY ITEM (Atorvastatin Calcium [Lipitor] 80 MG Tablet) PO SCH (10:00)
--- NOTE | 2024-02-17 10:44 | PCM.DS ---
Discharge Summary Date of Admission: 02/16/24 22:30 Date of Discharge: 02/17/24 Admitting Physician: CHERYLE MONTOYA MD Consults: Consults on Case 02/17/24 08:00 Case Management SDOH DC Needs Assessment ROUTINE 02/17/24 09:08 Consult Cardiology ROUTINE Primary Care Provider: OSCAR ZACARIAS Allergies Allergies No Known Drug Allergies Allergy (Verified 02/16/24 22:48) Hospital Summary - Hospital Course Hospital Course: HPI: Mr. CASANOVA is a 53 year old male with a past medical history significant for hypertension, hyperlipidemia and coronary artery disease status post multiple PTCA/stents and CABG x4 in March requiring IABP who moved up here from [place] but has not been able to afford his medications after losing his job. He has been paying for them out of pocket but having to ration them out. He presented to ED 02/16/24 with complaints of worsening chest pressure that was constant. Patient states he does have intermittent chest tightness that usually resolves pretty quickly. No palpitations or shortness of breath. Pain does not seem to radiate much. He notes that the pain he is experiencing is similar to chest pain he has had in the past. Troponins x 3 negative. EKG initial and repeat NS with no ischemic changes. Cardiology consulted with recommendations for continuation of cardioprotective medication regimen and follow up with OP cardiology. Patient has been advised to quit smoking. [facility] has been consulted to help with medications. PCP and cardiology appts to be made prior to discharge. Urine suspicious for UTI- will send home on Cefdinir and follow culture- will contact patient with any abx changes. 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 assistant serial troponins - neg x 3 -DDimer WNL -BNP WNL -CXR with no acute cardiopulmonary processes Repeat EKG and initial with no acute ischemic changes - NS -ruled out -Nitro called in Code(s): I24.9 - ACUTE ISCHEMIC HEART DISEASE, UNSPECIFIED (2) Essential (primary) hypertension Current Visit: Yes Status: Acute Assessment & Plan: -controlled - continue home meds Code(s): I10 - ESSENTIAL (PRIMARY) HYPERTENSION (3) Hyperlipidemia, unspecified Current Visit: Yes Status: Acute Qualifiers: Hyperlipidemia type: pure hypercholesterolemia Qualified Code(s): E78.00 - Pure hypercholesterolemia, unspecified; E78.0 - Pure hypercholesterolemia Assessment & Plan: -continue lipitor Code(s): E78.5 - HYPERLIPIDEMIA, UNSPECIFIED (4) UTI (urinary tract infection) Current Visit: Yes Status: Acute Assessment & Plan: -UA suspicious for UTI, will continue cefriaxone- follow culture Code(s): N39.0 - URINARY TRACT INFECTION, SITE NOT SPECIFIED (5) CAD (coronary artery disease) Current Visit: Yes Status: Acute Assessment & Plan: -continue home medications -CM to help with cost -Has had 8 heart attacks with PTCA/stents and CABG x4 03/2023 -Patient may need stress testing -Cardiology follow up has been set up I spent 35 minutes [id number] with the patient on the day of discharge performing discharge exam, discussing hospital stay and discharge instructions with patient and caregivers, preparation of discharge records, prescriptions & referral forms and addressing any questions/concerns the patient had as documented above. - Vitals & Intake/Output Vital Signs: Vital Signs Temperature 97.9 F 02/17/24 07:12 Pulse Rate 74 02/17/24 07:12 Respiratory Rate 16 02/17/24 07:12 Blood Pressure 104/64 02/17/24 07:12 O2 Sat by Pulse Oximetry 96 02/17/24 10:05 Intake & Output: Intake & Output 02/14/24 02/15/24 02/16/24 02/17/24 11:59 11:59 11:59 11:59 Intake Total 480 Output Total 500 Balance -20 Weight 68.6 kg - Lab Result Diagrams: 02/17/24 04:50 02/17/24 04:50 Lab Results-Last 24 Hrs: Lab Results-Last 24 Hours 02/16/24 02/16/24 02/16/24 Range/Units 19:00 19:00 19:00 WBC 9.2 H (4.23-9.07) x10^3/uL RBC 4.48 L (4.63-6.08) x10^6/uL Hgb 14.3 (13.7-17.5) g/dL Hct 41.7 (40.1-51.0) % MCV 93.1 H (79.0-92.2) fL MCH 31.9 (25.7-32.2) pg MCHC 34.3 (32.3-36.5) g/dL RDW 13.7 (11.6-14.4) % Plt Count 210 (163-337) x10^3/uL MPV 9.7 (9.4-12.4) fL Gran % 61.6 (34.0-67.9) % Immature Gran % (Auto) 0.1 (0.001-0.429) % Nucleat RBC Rel Count 0.0 (0.00-0.2) % Eos # (Auto) 0.25 (0.04-0.54) x10^3/uL Immature Gran # (Auto) 0.01 (0.001-0.031) x10^3u/L Absolute Lymphs (auto) 2.50 (1.32-3.57) x10^3/uL Absolute Monos (auto) 0.70 (0.30-0.82) x10^3/uL Absolute Nucleated RBC 0.00 (0.00-0.012) x10^3u/L Lymphocytes % 27.2 (21.8-53.1) % Monocytes % 7.6 (5.3-12.2) % Eosinophils % 2.7 (0.8-7.0) % Basophils % 0.8 (0.2-1.2) % Absolute Granulocytes 5.67 H (1.78-5.38) x10^3/uL Basophils # 0.07 (0.01-0.08) x10^3/uL PT 10.3 (9.4-12.5) SECONDS INR 0.94 (0.8-3.0) APTT 28.7 (25.1-36.5) SECONDS D-Dimer 0.47 (0.0-0.50) mg/L Sodium 141 (135-145) mmol/L Potassium 4.5 (3.5-5.1) mmol/L Chloride 106 (98-107) mmol/L Carbon Dioxide 29 (22-30) mmol/L Anion Gap 10.6 (5-15) MEQ/L BUN 13 (9-20) mg/dL Creatinine 0.93 (0.66-1.25) mg/dL Estimated GFR 97.0 ML/MIN Glucose 89 (74-106) mg/dL Calcium 9.8 (8.4-10.2) mg/dL Magnesium 2.0 (1.6-2.3) mg/dL Total Bilirubin 0.30 (0.2-1.3) mg/dL AST 24 (17-59) U/L ALT 19 (0-50) U/L Alkaline Phosphatase 70 (38-126) U/L Troponin I (0.000-0.033) ng/mL NT-Pro-B Natriuret Pep 121 (<300) pg/mL Serum Total Protein 6.8 (6.3-8.2) g/dL Albumin 3.9 (3.5-5.0) g/dL Urine Color (Yellow) Urine Appearance (Clear) Urine pH (4.6-8.0) Ur Specific [place] (1.005-1.030) Urine Protein (Negative) Urine Glucose (UA) (Negative) mg/dL Urine Ketones (Negative) Urine Blood (Negative) Urine Nitrite (Negative) Urine Bilirubin (Negative) Urine Urobilinogen (0.2) mg/dL Ur Leukocyte Esterase (Negative) U Hyaline Cast (Auto) (0-2) /LPF Urine Microscopic RBC (0-5) /HPF Urine Microscopic WBC (0-5) /HPF Ur Epithelial Cells (None Seen) /HPF Urine Bacteria (None Seen) /HPF Urine Culture Reflexed (NO) 02/16/24 02/16/24 02/16/24 Range/Units 19:00 21:28 23:20 WBC (4.23-9.07) x10^3/uL RBC (4.63-6.08) x10^6/uL Hgb (13.7-17.5) g/dL Hct (40.1-51.0) % MCV (79.0-92.2) fL MCH (25.7-32.2) pg MCHC (32.3-36.5) g/dL RDW (11.6-14.4) % Plt Count (163-337) x10^3/uL MPV (9.4-12.4) fL Gran % (34.0-67.9) % Immature Gran % (Auto) (0.001-0.429) % Nucleat RBC Rel Count (0.00-0.2) % Eos # (Auto) (0.04-0.54) x10^3/uL Immature Gran # (Auto) (0.001-0.031) x10^3u/L Absolute Lymphs (auto) (1.32-3.57) x10^3/uL Absolute Monos (auto) (0.30-0.82) x10^3/uL Absolute Nucleated RBC (0.00-0.012) x10^3u/L Lymphocytes % (21.8-53.1) % Monocytes % (5.3-12.2) % Eosinophils % (0.8-7.0) % Basophils % (0.2-1.2) % Absolute Granulocytes (1.78-5.38) x10^3/uL Basophils # (0.01-0.08) x10^3/uL PT (9.4-12.5) SECONDS INR (0.8-3.0) APTT (25.1-36.5) SECONDS D-Dimer (0.0-0.50) mg/L Sodium (135-145) mmol/L Potassium (3.5-5.1) mmol/L Chloride (98-107) mmol/L Carbon Dioxide (22-30) mmol/L Anion Gap (5-15) MEQ/L BUN (9-20) mg/dL Creatinine (0.66-1.25) mg/dL Estimated GFR ML/MIN Glucose (74-106) mg/dL Calcium (8.4-10.2) mg/dL Magnesium (1.6-2.3) mg/dL Total Bilirubin (0.2-1.3) mg/dL AST (17-59) U/L ALT (0-50) U/L Alkaline Phosphatase (38-126) U/L Troponin I < 0.012 < 0.012 (0.000-0.033) ng/mL NT-Pro-B Natriuret Pep (<300) pg/mL Serum Total Protein (6.3-8.2) g/dL Albumin (3.5-5.0) g/dL Urine Color Dark Yellow (Yellow) Urine Appearance Turbid A (Clear) Urine pH 8.0 (4.6-8.0) Ur Specific [place] 1.015 (1.005-1.030) Urine Protein Negative (Negative) Urine Glucose (UA) Negative (Negative) mg/dL Urine Ketones Negative (Negative) Urine Blood Negative (Negative) Urine Nitrite Negative (Negative) Urine Bilirubin Negative (Negative) Urine Urobilinogen 0.2 (0.2) mg/dL Ur Leukocyte Esterase Small A (Negative) U Hyaline Cast (Auto) NONE SEEN (0-2) /LPF Urine Microscopic RBC 3-5 (0-5) /HPF Urine Microscopic WBC 21-50 A (0-5) /HPF Ur Epithelial Cells None Seen (None Seen) /HPF Urine Bacteria Many A (None Seen) /HPF Urine Culture Reflexed YES (NO) 02/17/24 02/17/24 02/17/24 Range/Units 04:50 04:50 04:50 WBC 8.5 (4.23-9.07) x10^3/uL RBC 4.62 L (4.63-6.08) x10^6/uL Hgb 14.3 (13.7-17.5) g/dL Hct 42.8 (40.1-51.0) % MCV 92.6 H (79.0-92.2) fL MCH 31.0 (25.7-32.2) pg MCHC 33.4 (32.3-36.5) g/dL RDW 13.6 (11.6-14.4) % Plt Count 198 (163-337) x10^3/uL MPV 9.6 (9.4-12.4) fL Gran % 60.4 (34.0-67.9) % Immature Gran % (Auto) 0.2 (0.001-0.429) % Nucleat RBC Rel Count 0.0 (0.00-0.2) % Eos # (Auto) 0.23 (0.04-0.54) x10^3/uL Immature Gran # (Auto) 0.02 (0.001-0.031) x10^3u/L Absolute Lymphs (auto) 2.21 (1.32-3.57) x10^3/uL Absolute Monos (auto) 0.85 H (0.30-0.82) x10^3/uL Absolute Nucleated RBC 0.00 (0.00-0.012) x10^3u/L Lymphocytes % 26.0 (21.8-53.1) % Monocytes % 10.0 (5.3-12.2) % Eosinophils % 2.7 (0.8-7.0) % Basophils % 0.7 (0.2-1.2) % Absolute Granulocytes 5.14 (1.78-5.38) x10^3/uL Basophils # 0.06 (0.01-0.08) x10^3/uL PT (9.4-12.5) SECONDS INR (0.8-3.0) APTT (25.1-36.5) SECONDS D-Dimer (0.0-0.50) mg/L Sodium 140 (135-145) mmol/L Potassium 3.5 D (3.5-5.1) mmol/L Chloride 108 H (98-107) mmol/L Carbon Dioxide 27 (22-30) mmol/L Anion Gap 8.5 (5-15) MEQ/L BUN 9 (9-20) mg/dL Creatinine 0.79 (0.66-1.25) mg/dL Estimated GFR 104.9 ML/MIN Glucose 115 H (74-106) mg/dL Calcium 9.6 (8.4-10.2) mg/dL Magnesium (1.6-2.3) mg/dL Total Bilirubin 0.40 (0.2-1.3) mg/dL AST 20 (17-59) U/L ALT 18 (0-50) U/L Alkaline Phosphatase 74 (38-126) U/L Troponin I < 0.012 (0.000-0.033) ng/mL NT-Pro-B Natriuret Pep 161 (<300) pg/mL Serum Total Protein 6.3 (6.3-8.2) g/dL Albumin 3.6 (3.5-5.0) g/dL Urine Color (Yellow) Urine Appearance (Clear) Urine pH (4.6-8.0) Ur Specific [place] (1.005-1.030) Urine Protein (Negative) Urine Glucose (UA) (Negative) mg/dL Urine Ketones (Negative) Urine Blood (Negative) Urine Nitrite (Negative) Urine Bilirubin (Negative) Urine Urobilinogen (0.2) mg/dL Ur Leukocyte Esterase (Negative) U Hyaline Cast (Auto) (0-2) /LPF Urine Microscopic RBC (0-5) /HPF Urine Microscopic WBC (0-5) /HPF Ur Epithelial Cells (None Seen) /HPF Urine Bacteria (None Seen) /HPF Urine Culture Reflexed (NO) - Radiology Exams Ordered Rad Exams-Entire Visit: Radiology Procedures Category Date Time Status CHEST 1 VIEW (PORTABLE) Stat Exams 02/16/24 20:19 Completed - Procedures and Test Procedures and Tests throughout Hospitalization: Therapy Orders & Screens 02/16/24 22:32 EKG REPEAT IN AM Comment: 02/16/24 23:18 Smoking Cessation Education ONCE Comment: Diagnosis: ACS Smoking Status: Current every day smoker How long have you smoked: 30 YEARS Have you smoked in the past 12 months: Yes Approximately how many cigarettes per day: 1-2 Do you dip or chew tobacco: No 02/17/24 08:00 EKG ROUTINE Comment: Diagnosis: ACS Discharge Exam General Appearance: no apparent distress Neurologic Exam: alert, oriented x 3, cooperative Eye Exam: PERRL Ears, Nose, Throat Exam: normal ENT inspection Neck Exam: normal inspection Respiratory Exam: normal breath sounds, lungs clear Cardiovascular Exam: regular rate/rhythm, normal heart sounds Gastrointestinal/Abdomen Exam: soft, normal bowel sounds Male Genitalia Exam: deferred Rectal Exam: deferred Extremity Exam: normal inspection Skin Exam: normal color Final Diagnosis/Problem List - Final Discharge Diagnosis/Problem (1) ACS (acute coronary syndrome) Current Visit: Yes Status: Ruled-out Code(s): I24.9 - ACUTE ISCHEMIC HEART DISEASE, UNSPECIFIED (2) Essential (primary) hypertension Current Visit: Yes Status: Chronic Code(s): I10 - ESSENTIAL (PRIMARY) HYPERTENSION (3) Hyperlipidemia, unspecified Current Visit: Yes Status: Chronic Code(s): E78.5 - HYPERLIPIDEMIA, UNSPECIFIED (4) UTI (urinary tract infection) Current Visit: Yes Status: Acute Code(s): N39.0 - URINARY TRACT INFECTION, SITE NOT SPECIFIED (5) CAD (coronary artery disease) Current Visit: Yes Status: Chronic Code(s): I25.10 - ATHSCL HEART DISEASE OF [place] CORONARY ARTERY W/O ANG PCTRS - Discharge Disposition: Home, Self-Care Condition: Stable Prescriptions: New Cefdinir 300 mg PO BID 7 Days #14 cap Continue Aspirin [Aspirin EC] 81 mg PO DAILY 30 Days #30 tablet Atorvastatin Calcium [Lipitor] 80 mg PO DAILY 30 Days #30 tablet Metoprolol Succinate 25 mg Xl* [Toprol-Xl 25MG Tablets] 25 mg PO DAILY 30 Days #30 tablet Lisinopril 20 mg [Zestril 20 MG] 20 mg PO DAILY 30 Days #30 tablet Follow up with: JORDIN SALINAS NP [NON-STAFF PHY W/O PRIVILEGES] - 02/23/24 1:20 pm (Please be at your appointment by 12:50.)
[2024-02-17 11:48] VITALS: BP 105/63; PULSE 82; TEMP 98.1; O2SAT 95
== END 2024-02-17 13:17 | disposition home or self-care (01) ==
LOC: ED 18:58 → MED SURG 22:30
PROVIDERS: ADMIT Internal Medicine Nephrology; ATTEND Internal Medicine Nephrology
DX: I24.9 Acute ischemic heart disease, unspecified (principal); Z59.811 Housing instability, housed, with risk of homelessness; Z59.82 Transportation insecurity; Z59.9 Problem related to housing and economic circumstances, unspecified; I10 Essential (primary) hypertension; E78.5 Hyperlipidemia, unspecified; Z95.0 Presence of cardiac pacemaker; I25.2 Old myocardial infarction; N39.0 Urinary tract infection, site not specified; I25.10 Atherosclerotic heart disease of native coronary artery without angina pectoris; F17.200 Nicotine dependence, unspecified, uncomplicated; Z79.01 Long term (current) use of anticoagulants; Z79.899 Other long term (current) drug therapy
CPT/HCPCS: 36000; 36415; 71045; 80053; 81001; 83735; 83880; 84484; 85025; 85379; 85610; 85730; 87086; 93005; 93041; 94760; 99285; Q3014; 87077; 87186; 93268; J0696; J1650; A9270-GY; G0378